=== PATIENT | male | born 1940 | race Caucasian/White ===

== ENCOUNTER 2017-07-24 09:18 | Emergency (ER) | payer OTHER, BC ==
[~2017-07-24] VITALS: Ht 180.3 cm; Wt 84.9 kg
[2017-07-24 12:20] VITALS: BP 138/71
== END 2017-07-24 12:21 | disposition home or self-care (01) ==
LOC: EME 09:18
DX: S09.8XXA Other specified injuries of head, initial encounter (principal); S16.1XXA Strain of muscle, fascia and tendon at neck level, initial encounter; W01.0XXA Fall on same level from slipping, tripping and stumbling without subsequent striking against object, initial encounter; Y93.H2 Activity, gardening and landscaping; R04.0 Epistaxis; Z88.0 Allergy status to penicillin
CPT/HCPCS: 70450; 72125; 99281; 99284